=== PATIENT | female | born 1990 | race Caucasian/White ===

== ENCOUNTER 2023-07-11 09:40 | Inpatient (IN) | payer OTHER ==
[2023-07-11] MEDS ORDERED: CITRIC ACID/SODIUM CITRATE 30 ML UNIT-DOSE CUP PO ONE (11:14)
[2023-07-11] MEDS ORDERED: ELECTROLYTE-148 SOLN 500 ML IV ONE (11:14)
[2023-07-11] MEDS ORDERED: ONDANSETRON 4 MG/2 ML VIAL IVPUSH PRN (11:17)
[2023-07-11] MEDS ORDERED: morphine SULFATE/PF 1 MG/2 ML (2cc Syringe - QUVA) EP ONE (11:17)
[2023-07-11] MEDS ORDERED: ACETAMINOPHEN 325 MG TABLET (FP) PO PRN (11:17)
[2023-07-11] MEDS ORDERED: SODIUM CHLORIDE 0.9% P/F 10 ML VIAL IJ ONE (12:19)
[2023-07-11] MEDS ORDERED: ceFAZolin SODIUM 1 GM VIAL ONE (12:19)
[2023-07-11] MEDS ORDERED: morphine SULFATE/PF 1 MG/2 ML (2cc Syringe - QUVA) ONE (12:19)
[2023-07-11] MEDS ORDERED: GLYCOPYRROLATE 0.2 MG/1 ML VIAL ONE (12:40)
[2023-07-11] MEDS ORDERED: PHENYLEPHRINE HCL 10 MG/1 ML SINGLE DOSE VIAL ONE (12:40)
[2023-07-11] MEDS ORDERED: OXYTOCIN 10 UNITS/ML VIAL ONE ×2 (12:51→13:15)
[2023-07-11] MEDS ORDERED: MEPERIDINE HCL 25 MG/ML VIAL ONE (12:52)
[2023-07-11] MEDS: OXYTOCIN 20 UNITS in 0.9% NS 20 UNIT/1,000 ML INFUS.BAG IV SCH ×2 (13:04→21:22)
[2023-07-11] MEDS ORDERED: ONDANSETRON 4 MG/2 ML VIAL ONE (13:04)
[2023-07-11] MEDS ORDERED: MIDAZOLAM HCL 2 MG/2 ML SINGLE DOSE VIAL ONE (13:16)
[2023-07-11 13:46] VITALS: BMI 36.9
[2023-07-11 13:50] LABS: CORD BASE EXCESS -6.1 mmol/L (0-2); CORD PCO2 53.4 mmHg (30-78); CORD pH 7.233 (7.14-7.44)
[2023-07-11 13:53] LABS: CORD HCO3 22.3 mmHg (20-29); CORD PCO2 58.8 mmHg (30-78); CORD pH 7.196 (7.14-7.44)
[2023-07-11] MEDS ORDERED: METHYLERGONOVINE MALEATE 0.2 MG/1 ML AMP IM PRN (13:53)
[2023-07-11] MEDS ORDERED: WITCH HAZEL 50% (TUCKS) 40 PAD/JAR PAD TP PRN (13:53)
[2023-07-11] MEDS ORDERED: BENZOCAINE 20% 57 GM BOTTLE TP PRN (13:53)
[2023-07-11] MEDS ORDERED: BENZOCAINE 28 GM HEMORRHOIDAL OINTMENT TP PRN (13:53)
[2023-07-11] MEDS ORDERED: IBUPROFEN 600 MG TABLET (FP) PO PRN (13:53)
[2023-07-11] MEDS ORDERED: OXYTOCIN 20 UNITS in 0.9% NS 20 UNIT/1,000 ML INFUS.BAG IV ONE (14:03)
[2023-07-11] MEDS ORDERED: IBUPROFEN 800 MG/8 ML IJ IVPB ONE (15:41)
[2023-07-11] MEDS: IBUPROFEN 800 MG/8 ML IJ IVPB PRN (16:00)
[2023-07-12] MEDS ORDERED: oxyCODONE HCL 5 MG TABLET PO PRN ×2 (01:53)
[2023-07-12] MEDS: IBUPROFEN 800 MG/8 ML IJ IVPB PRN (02:21)
[2023-07-12 08:36] LABS: BASO % 0.5 % (0-2.0); EOS % 0.8 % (0-4.5); HEMATOCRIT 34.4 % (32.4-45.2); HEMOGLOBIN 11.6 GM/dL (10.7-15.3); LYMPH % 18.9 % (8-40); MCH 31.7 pg (25.7-33.7); MCHC 33.8 g/dl (32.0-36.0); MEAN CELL VOLUME 93.8 fl (80-96); MEAN PLT VOLUME 8.8 fl (7.5-11.1); MONO % 7.3 % (3.8-10.2); NEUT % 72.5 % (42.8-82.8); PLATELET COUNT 149 10^3/uL (134-434); RBC 3.67 M/mm3 (3.60-5.2); RDW 13.4 % (11.6-15.6); WHITE BLOOD COUNT 12.1 K/mm3 (4.0-10.0)
[2023-07-12] MEDS: PRENATAL VITAMINS W/ FOLIC ACID TABLET (FP) PO SCH (09:20)
[2023-07-12] MEDS: ENOXAPARIN NA (PORCINE) 40 MG/0.4 ML DISP.SYRIN SQ SCH (09:20)
[2023-07-12] MEDS: IBUPROFEN 600 MG TABLET (FP) PO PRN ×3 (10:03→22:19)
[2023-07-12] MEDS: SIMETHICONE 80 MG TAB.CHEW (FP) PO PRN ×2 (10:03→20:06)
[2023-07-12 11:29] VITALS: RESP 18
[2023-07-12] MEDS ORDERED: BISACODYL 10 MG SUPP.RECT RC PRN (13:53)
[2023-07-12] MEDS: ACETAMINOPHEN 325 MG TABLET (FP) PO PRN ×2 (14:17→20:07)
[2023-07-12] MEDS: OXYTOCIN 20 UNITS in 0.9% NS 20 UNIT/1,000 ML INFUS.BAG IV SCH (14:19)
[2023-07-12] MEDS: SENNOSIDES/DOCUSATE COMBO (SENNA PLUS) TABLET (UD) PO PRN (20:07)
[2023-07-13] MEDS: IBUPROFEN 600 MG TABLET (FP) PO PRN ×3 (05:33→19:50)
[2023-07-13] MEDS: ACETAMINOPHEN 325 MG TABLET (FP) PO PRN ×2 (10:09→17:02)
[2023-07-13] MEDS: ENOXAPARIN NA (PORCINE) 40 MG/0.4 ML DISP.SYRIN SQ SCH (10:09)
[2023-07-13] MEDS: PRENATAL VITAMINS W/ FOLIC ACID TABLET (FP) PO SCH (10:09)
[2023-07-13] MEDS: SIMETHICONE 80 MG TAB.CHEW (FP) PO PRN ×2 (13:28→19:48)
[2023-07-13] MEDS: SENNOSIDES/DOCUSATE COMBO (SENNA PLUS) TABLET (UD) PO PRN (19:50)
[2023-07-14] MEDS: IBUPROFEN 600 MG TABLET (FP) PO PRN (01:51)
[2023-07-14] MEDS: ACETAMINOPHEN 325 MG TABLET (FP) PO PRN (07:43)
[2023-07-14 09:06] LABS: BASO % 0.4 % (0-2.0); EOS % 2.9 % (0-4.5); HEMATOCRIT 35.1 % (32.4-45.2); HEMOGLOBIN 11.6 GM/dL (10.7-15.3); LYMPH % 26.6 % (8-40); MCH 31.2 pg (25.7-33.7); MCHC 33.1 g/dl (32.0-36.0); MEAN CELL VOLUME 94.2 fl (80-96); MEAN PLT VOLUME 8.2 fl (7.5-11.1); MONO % 6.4 % (3.8-10.2); NEUT % 63.7 % (42.8-82.8); PLATELET COUNT 197 10^3/uL (134-434); RBC 3.73 M/mm3 (3.60-5.2); RDW 13.5 % (11.6-15.6); WHITE BLOOD COUNT 8.9 K/mm3 (4.0-10.0)
[2023-07-14] MEDS: ENOXAPARIN NA (PORCINE) 40 MG/0.4 ML DISP.SYRIN SQ SCH (09:17)
[2023-07-14] MEDS: PRENATAL VITAMINS W/ FOLIC ACID TABLET (FP) PO SCH (09:17)
[2023-07-14 14:30] VITALS: BP 111/69; PULSE 56; TEMP 98
== END 2023-07-14 12:30 | disposition home or self-care (01) | DRG 788 ==
LOC: JLDR 09:40 → J3W 16:55
PROVIDERS: ADMIT Obstetrics & Gynecology; ATTEND Obstetrics & Gynecology
PROC: 10D00Z1 Extraction of Products of Conception, Low, Open Approach (ICD-10-PCS; principal; 2023-07-11)
DX: O48.0 Post-term pregnancy (principal); O99.214 Obesity complicating childbirth; O36.63X0 Maternal care for excessive fetal growth, third trimester, not applicable or unspecified; O33.9 Maternal care for disproportion, unspecified; Z3A.40 40 weeks gestation of pregnancy; Z37.0 Single live birth
CPT/HCPCS: 36415; 36600; 82803; 85025